=== PATIENT | male | born 1965 | race Caucasian/White ===

== ENCOUNTER → 2024-12-24 08:06 | Outpatient (BNVA) | payer OTHER, SELFPAY | PROVIDERS: PCP Family Medicine; Visit Provider Family Medicine | DX: R79.89 Other specified abnormal findings of blood chemistry (principal) | CPT/HCPCS: 80053; 84403; 85025 ==

== ENCOUNTER 2025-01-22 08:39 | Day surgery (SDC) | payer OTHER, SELFPAY ==
[2025-01-22 09:08] VITALS: BP 149/83; PULSE 64; RESP 16; TEMP 36.6; O2SAT 99
--- NOTE | 2025-01-22 09:14 | W.PM.OPSUD ---
Surgery/Procedure H&P Update DATE OF PROCEDURE: January 22, 2025 DATE H&P PERFORMED: 01/24/25 H&P UPDATE INFORMATION: I have reviewed H&P completed within last 30 days, I have examined patient prior to procedure, No changes to prior documentation, Changes to prior documentation as noted here and Risks and benefits of the procedure reviewed PLANNED PROCEDURE: Operation Date: 01/22/25 10:10 Proposed Procedures p Colonoscopy [id number] G0121 Z12.11(Not Applicable) - Thad Roberts MD
[2025-01-22] MEDS: sodium chloride 0.9% 1,000 ML 15 ML IV (09:21)
--- NOTE | 2025-01-22 09:39 | ANES.PREANE2 ---
Pre-Anesthetic Assessment Height/Weight: Height 1.78 m Weight 86.183 kg Temp Pulse Resp BP Pulse Ox O2 Del Method 97.9 F 64 16 149/83 99 Room Air 01/22/25 09:08 01/22/25 09:08 01/22/25 09:08 01/22/25 09:08 01/22/25 09:08 01/22/25 09:08 Preop Diagnosis: screening Operation Date: 01/22/25 10:10 Proposed Procedures p Colonoscopy [id number] G0121 Z12.11(Not Applicable) - Thad Roberts MD Was Beta Héctor taken within 24 hours: N/A Was Clonidine taken within 24 hours: N/A Last intake: Intake Last Liquid Date 01/21/25 Last Liquid Time 23:00 Last Solid Date 01/20/25 Last Solid Time 18:00 Social No alcohol and No tobacco Exam alert, oriented x 3, clear to auscultation bilaterally and regular rate & rhythm Airway Submandibular: within normal limits Cervical ROM: within normal limits Mallampati: Class II Dentition: full History/ROS No significant history except as noted and No significant complaints Pulmonary None reported CV/HEM Hypertension None reported Hepatic None reported GI None reported Metabolic None reported Musc/skel None reported Neuropsych None reported Anesthetic Plan ASA status: 2 Anesthesia: MAC Risk of > 500 ml blood loss (7ml/kg in children): No Medications/Allergies Home Medications ?Medication ?Instructions ?Recorded ?Confirmed ?Last Taken ?Type testosterone 1.62 % (40.5 mg/2.5 2 packet transdermal DAILY #75 12/25/24 01/19/25 01/19/25 Rx gram) transdermal gel packet grams (AndroGel) Allergies Allergy/AdvReac Type Severity Reaction Status Date / Time No Known Allergies Allergy Unverified 01/19/25 09:17 Current Medications Generic Name Dose Route Start Last Admin Trade Name Freq PRN Reason Stop Dose Admin Sodium Chloride 1,000 mls @ 15 mls/hr 01/22/25 08:48 01/22/25 09:21 Sodium Chloride 0.9% IV 01/23/25 08:47 15 mls/hr .Q24H PRN Administration COLONOSCOPY FLUIDS PFSH Anesthesia Medical History Low testosterone in male Encounter to establish care Family History (Updated 12/24/24 @ 08:40 by AIDE Gonzales) Father Hypertension Mother Hypertension Social History Smoking and tobacco/nicotine status: never used tobacco/nicotine Data Anesthesia Cardiac Studies: No Data to Display
[2025-01-22 10:17] VITALS: BP 117/64; PULSE 70; RESP 16; TEMP 36.2; O2SAT 99
[2025-01-22 10:29] VITALS: BP 116/70; PULSE 71; RESP 18; O2SAT 98
--- NOTE | 2025-01-22 10:40 | ANE.PACU2 ---
Inpatient post-anesthesia follow up: Airway intact: Yes Vital signs: Temperature 97.2 F Pulse Rate 71 Respiratory Rate 18 Blood Pressure 116/70 Pulse Oximetry 98 Oxygen Delivery Me thod Room Air Oxygen Flow Rate Fraction of Inspir ed Oxygen Hydration adequate: Yes Nausea and vomiting: No Pain level: 1 Mental status: Baseline
== END 2025-01-22 10:41 | disposition home or self-care (01) ==
PROVIDERS: PCP Family Medicine; Visit Provider Surgery
PROC: 0DJD8ZZ Inspection of Lower Intestinal Tract, Via Natural or Artificial Opening Endoscopic (ICD-10-PCS; CPT 45378; principal; 2025-01-22 10:10)
DX: Z12.11 Encounter for screening for malignant neoplasm of colon (principal); D12.3 Benign neoplasm of transverse colon; D12.5 Benign neoplasm of sigmoid colon; I10 Essential (primary) hypertension; Z79.890 Hormone replacement therapy
CPT/HCPCS: 45381; 45384; 45385; 88305; J2371; J2704; J7030

== ENCOUNTER → 2025-06-04 09:36 | Outpatient (BNVA) | payer OTHER, SELFPAY | PROVIDERS: PCP Family Medicine; Visit Provider Family Medicine | DX: R79.89 Other specified abnormal findings of blood chemistry (principal) | CPT/HCPCS: 84403; 85025 ==

== ENCOUNTER → 2025-06-05 08:49 | Outpatient (BNVA) | payer OTHER, SELFPAY | PROVIDERS: PCP Family Medicine | DX: R79.89 Other specified abnormal findings of blood chemistry (principal) | CPT/HCPCS: 84403; 85025 ==

== ENCOUNTER → 2025-08-04 09:38 | Outpatient (BNVA) | payer OTHER, SELFPAY | PROVIDERS: PCP Family Medicine | DX: R79.89 Other specified abnormal findings of blood chemistry (principal) | CPT/HCPCS: 84403 ==